=== PATIENT | female | born 1975 | race Caucasian/White ===

== ENCOUNTER 2017-05-02 02:35 | Inpatient (IN) | payer MEDICAID ==
[~2017-05-02] VITALS: Ht 149.9 cm; Wt 71.0 kg
[2017-05-02 02:53] VITALS: BP 148/75; PULSE 61; RESP 18; Ht 149.9 cm; Wt 71.0 kg
[2017-05-02] MEDS ORDERED: LACTATED RINGER'S 1,000 ML IV SCH (03:08)
[2017-05-02] MEDS ORDERED: DEXTROSE 5%-LR 1,000 ML IV SCH (03:08)
[2017-05-02] MEDS ORDERED: OXYTOCIN 30 UNITS/LR 500 ML IV PRN ×2 (03:30→11:00)
[2017-05-02] MEDS ORDERED: CARBOPROST 250 MCG INJ IM PRN ×2 (03:30→11:00)
[2017-05-02] MEDS ORDERED: IBUPROFEN 600 MG TAB PO PRN (03:30)
[2017-05-02] MEDS ORDERED: BUTORPHANOL 2 MG INJ IV PRN (03:30)
[2017-05-02] MEDS ORDERED: MISOPROSTOL 200 MCG TAB PR PRN ×2 (03:30→11:00)
[2017-05-02] MEDS ORDERED: LIDOCAINE 1% (MPF) 30 ML INJ INJ PRN (03:30)
[2017-05-02] MEDS ORDERED: ACETAMINOPHEN/CODEINE #3 TAB PO PRN (03:30)
[2017-05-02] MEDS ORDERED: OXYTOCIN 30 UNITS/LR 500 ML IV SCH ×2 (03:30)
[2017-05-02] MEDS ORDERED: METHYLERGONOVINE 0.2 MG INJ IM PRN ×2 (03:30→11:00)
[2017-05-02 03:56] LABS: ADD SCAN DIFF NO
[2017-05-02 04:21] LABS: BASOPHILS % 0.2 % (0.0-2.0); EOSINOPHILS # 0.1 10^3/ul (0.0-0.5); EOSINOPHILS % 0.7 % (0.0-7.0); HEMOGLOBIN 11.8 g/dl (12.0-16.0); LYMPHOCYTES # 1.6 10^3/ul (0.8-2.9); LYMPHOCYTES % 18.5 % (15.0-51.0); MEAN CORPUSCULAR HGB CONC 34.7 g/dl (32.0-37.0); MEAN CORPUSCULAR VOLUME 92.1 fl (82.0-101.0); MONOCYTE # 0.6 10^3/ul (0.3-0.9); MONOCYTES % 7.5 % (0.0-11.0); NEUTROPHIL # 6.2 10^3/ul (1.6-7.5); NEUTROPHILS % 72.9 % (39.0-77.0); PLATELET COUNT 180 10^3/UL (140-415); RED BLOOD COUNT 3.69 10^6/ul (4.20-5.40); RED CELL DISTRIBUTION WIDTH 13.9 % (11.5-14.5); WHITE BLOOD COUNT 8.5 10^3/ul (4.8-10.8)
--- NOTE | 2017-05-02 04:22 | TRIAGE ---
OB Triage Datetime Report Generated by CPN: 05/02/2017 04:21 Datetime: 05/02/2017 03:18 Assessment Type: Triage Comment: MONITORS OFF, PT TRANSFER TO FB VIA GURNEY. Datetime: 05/02/2017 03:00 Assessment Type: Triage Maternal Assessment Level of Consciousness: Fully Conscious DTR's/Clonus: DTRs 2+; No Clonus Headache: Denies Blurred Vision: No Respiratory Effort: Unlabored; Regular Rhythm; Equal Expansion Breath Sounds, Left: Clear and Equal Breath Sounds, Right: Clear and Equal Nausea/Vomiting: Denies RUQ Epigastric Pain: Denies Lower Extremities Edema: None Upper Extremities Edema: None Facial Edema: None Fall Risk Assessment History of Falling: (0) No Secondary Diagnosis: (0) No Ambulatory Aid: (0) Bedrest/Nurse Assist IV Therapy: (0) No Gait: (0) Normal/Bedrest/Immobile Mental Status: (0) Oriented to Own Ability Fall Score: 0 Fall Risk Score Definition: No Risk: No action required Datetime: 05/02/2017 02:58 Stage of : OB Triage Labor Evaluation Frequency: 3-3.5 Monitor Mode: External Duration (sec)2399: 80-90 Quality: Moderate Pattern: Normal: <= 5 Contractions in 10 Minutes Resting Tone [place]: Relaxed Heart Rate FHR Baseline Rate: 130 Monitor Mode: External US Variability: Moderate 6-25 bpm Accelerations: 15X15 Decelerations: None Category: Category I Pain Assessment Pain Scale: 6 Pain Presence: Intermittent Pain Type: Contraction Pain Location: Abdomen Pain Goal: 3 Datetime: 05/02/2017 02:55 Time of Arrival: 05/02/2017 02:32 EGA: 38.1 Arrived By: Wheelchair Arrived From: Home Chief Complaint: PT C/O ABDOMEN PAIN Movement: Present Contractions: Regular Time Contractions Began: 05/02/2017 00:30 Rupture of Membranes: Denies Vaginal Discharge: Denies Recent Sexual Intercouse: Denies Patient Complaints: Contractions Time Provider Notified: 05/02/2017 03:05 Provider Notified: DR YANG Initial Plan: SVE, TOCO AND EFM APPLIED. Datetime: 05/02/2017 02:45 Stage of : OB Triage Vaginal Exam Dilatation (cms): 4.0 Effacement (%): 80 Station: -2 Exam By: CEZAR ALEX Membrane Status: Intact
[2017-05-02 04:29] LABS: ALANINE AMINOTRANSFERASE 51 IU/L (13-69); ALKALINE PHOSPHATASE 182 IU/L (42-121); ANION GAP 10 (8-16); ASPARTATE AMINO TRANSFERASE 31 IU/L (15-46); BILIRUBIN,INDIRECT 0.2 mg/dl (0-1.1); BILIRUBIN,TOTAL 0.2 mg/dl (0.2-1.3); BLOOD UREA NITROGEN 14 mg/dl (7-20); CARBON DIOXIDE 23 mmol/L (21-31); CHLORIDE 110 mmol/L (97-110); CREATININE 0.62 mg/dl (0.44-1.00); GLUCOSE 102 mg/dl (70-220); POTASSIUM 3.6 mmol/L (3.5-5.1); SODIUM 139 mmol/L (135-144); TOTAL PROTEIN 6.5 g/dl (6.1-8.1)
[2017-05-02] MEDS ORDERED: LACTATED RINGER'S 1,000 ML IV PRN (05:00)
[2017-05-02 05:49] LABS: INR 0.93; PROTIME 12.5 Sec (12.2-14.2)
--- NOTE | 2017-05-02 09:31 | HP ---
Date/Time of Note Date/Time of Note DATE: 05/02/17 TIME: 07:53 OB - History Hx of Present Free Text/Dictation 41y.o A2 at 38w with c/o uterine contractions. u.c 7-5 min apart cx 4cm 80% -2 intact membrane initial b.p 148/75 PIH lab done also known to be A1DM admitted for expectant management Chief Complaint: uterine contrations Estimated Due Date: May 15, 2017 : 5 Para: 2 Spontaneous : 2 Therapeutic : 0 Care: Good Care Ultrasounds: Normal mid trimester US Obstetrical Complications: Gestational Diabetes Medical Complications: None Past Family/Social History * Past Medical, Surgical, Family and Obstetric Histories reviewed from chart. Blood Type: O+ Rubella: immune RPR/VDRL: Negative GBS Status: Negative HBsAG: Negative OB Admission Exam Vital Signs Vital Signs Vital Signs Date Time Temp Pulse Resp B/P Pulse Ox O2 Delivery O2 Flow Rate FiO2 05/02/17 02:53 98.4 61 18 148/75 Physical Exam HEENT: WNL Heart: Rhythm Normal Lungs: Clear, Equal Abdomen: WNL Extremities: Normal Reflexes: Normal Cervical Dilatation: 4cm Effacement: 75% Station: -2 Membranes: Intact Amniotic Fluid: Unevaluable Heart Rate: 140's Accelerations: Accelerations Present Decelerations: No Decelerations Varibility: Moderate Contractions on Admission: 6-10 Minutes Apart Intensity: Moderate Last 72 hourBlood Glucose Bedside Glucose - 72 Hours Test 05/02/17 05:18 Bedside Glucose 130mg/dL (70-220) Last 72 hours Lab Results CBC & BMP 05/02/17 03:25 Liver Function Test 05/02/17 03:25 Alanine Aminotransferase (ALT/SGPT) 51 Albumin 4.0 Alkaline Phosphatase 182 H Aspartate Amino Transf (AST/SGOT) 31 Direct Bilirubin 0.00 Total Protein 6.5 OB Assessment/Plan Reason for admission: active labor Other Assessment: IUP 38w1d Plan: Expectant Management DESEAN YANG MD May 02, 2017 08:07
--- NOTE | 2017-05-02 09:37 | LDN ---
Date/Time of Note Date/Time of Note DATE: 05/02/17 TIME: 09:34 Delivery Summary normal vaginal delivery Weeks of Gestation 38w1d Placenta Delivered: Spontaneously Meconium: none Episiotomy: No Perineal laceration: 0 Anesthesia type: None Estimated blood loss: 300 Sponge & Needle done & correct: Yes All needle counts correct: Yes Any foreign bodies felt in the: No Problems: Delivery Information Sex Sex: male Apgars 1 Minute: 9 5 Minute: 9 Suctioning Nose & mouth suctioned at ju: Yes Umbilical Cord Umbilical cord with: 3 Vessels Cord presentations: no nuchal cord Cord Blood was obtained: Yes Mother & Baby Disposition Disposition Mom & Baby to Maternity; Good: Yes Mom transferred to: Other () Baby to NICU: No DESEAN YANG MD May 02, 2017 09:37
[2017-05-02 10:40] VITALS: BP 152/77; PULSE 56; RESP 18
[2017-05-02] MEDS ORDERED: BENZOCAINE 20% 56 ML SPRAY TOP PRN (11:00)
[2017-05-02] MEDS ORDERED: OXYCODONE/ASPIRIN (4.88/325) TAB PO PRN ×2 (11:00)
[2017-05-02] MEDS ORDERED: ZOLPIDEM 5 MG TAB PO PRN (11:00)
[2017-05-02] MEDS ORDERED: WITCH HAZEL/GLYCERIN PAD PR PRN (11:00)
[2017-05-02] MEDS ORDERED: LANOLIN 7 GM TUBE TOP PRN (11:00)
[2017-05-02 11:10] VITALS: BP 143/71; PULSE 60; RESP 18
[2017-05-02] MEDS: IBUPROFEN 600 MG TAB PO SCH ×3 (12:00→23:29)
[2017-05-02 16:00] VITALS: BP 129/66; PULSE 62; RESP 18
[2017-05-02 20:00] VITALS: BP 121/66; PULSE 62; RESP 18
[2017-05-02] MEDS: SENNA/DOCUSATE NA (8.6MG/50MG) TAB PO SCH (21:49)
[2017-05-03 04:00] VITALS: BP 135/77; PULSE 54; RESP 18
[2017-05-03] MEDS: IBUPROFEN 600 MG TAB PO SCH ×3 (05:45→18:00)
[2017-05-03 08:00] VITALS: BP 127/65; PULSE 65; RESP 18
[2017-05-03 08:15] LABS: ADD SCAN DIFF NO
[2017-05-03 08:29] LABS: BASOPHILS % 0.3 % (0.0-2.0); EOSINOPHILS # 0.1 10^3/ul (0.0-0.5); EOSINOPHILS % 0.9 % (0.0-7.0); HEMATOCRIT 29.5 % (37.0-47.0); LYMPHOCYTES # 1.4 10^3/ul (0.8-2.9); LYMPHOCYTES % 19.4 % (15.0-51.0); MEAN CORPUSCULAR HEMOGLOBIN 31.4 pg (29.0-33.0); MEAN CORPUSCULAR HGB CONC 33.9 g/dl (32.0-37.0); MEAN CORPUSCULAR VOLUME 92.8 fl (82.0-101.0); MEAN PLATELET VOLUME 12.8 fl (7.4-10.4); MONOCYTE # 0.6 10^3/ul (0.3-0.9); MONOCYTES % 7.7 % (0.0-11.0); NEUTROPHIL # 5.3 10^3/ul (1.6-7.5); NEUTROPHILS % 71.4 % (39.0-77.0); PLATELET COUNT 163 10^3/UL (140-415); RED BLOOD COUNT 3.18 10^6/ul (4.20-5.40); RED CELL DISTRIBUTION WIDTH 14.2 % (11.5-14.5); WHITE BLOOD COUNT 7.4 10^3/ul (4.8-10.8)
[2017-05-03] MEDS: SENNA/DOCUSATE NA (8.6MG/50MG) TAB PO SCH ×2 (09:00→21:48)
--- NOTE | 2017-05-03 14:03 | PN ---
Date/Time of Note Date/Time of Note DATE: 05/03/17 TIME: 14:02 OB Subjective Subjective Subjective Doing well.Nursing the baby well.Lochia,normal OB Objective Objective Objective Afebrile,normal BP Uterus firm,abdomen ,soft HEENT: WNL Heart: Rhythm Normal Lungs: Clear Abdomen: WNL Extremities: Normal Reflexes: Normal EMILY HO MD May 03, 2017 14:03
[2017-05-03 16:00] VITALS: BP 137/56; PULSE 57; RESP 18
[2017-05-03 19:30] VITALS: BP 134/63; PULSE 54; RESP 19
[2017-05-04] MEDS: IBUPROFEN 600 MG TAB PO SCH ×2 (00:21→05:25)
[2017-05-04 03:50] VITALS: BP 132/60; PULSE 51; RESP 18
--- NOTE | 2017-05-04 06:06 | DS ---
Date/Time of Note Date/Time of Note DATE: 05/04/17 TIME: 06:04 Obstetrical Discharge Record Final Diagnosis Final Diagnosis: Term delivered Vaginal Delivery Obstetrical Delivery: Spontaneous Complications Augmentation: No Induction: No Rupture of Membranes: No Condition on Discharge Physical Assessment Voiding: Yes Bowel Movement: Yes Breast: Soft, non-tender Fundus: Firm Episiotomy: none Calf Tenderness: No Patient Condition: Stable DESEAN YANG MD May 04, 2017 06:06
--- NOTE | 2017-05-04 06:07 | PD.PPDC ---
[employer] Discharge Instruction Diagnosis Final Diagnosis: s/p normal vagianal delivery Condition Patient Condition: Stable Diet Diet: Resume Regular Diet Activity/Restrictions Activity: May Shower Restrictions: No Lifting No Sexual Activity Nothing in the Vagina No [place] No Tampons, douche Follow-up Follow-up with Physician: 2, Week/Weeks Return to clinic for [employer]SULTANT Instructions: Fever greater than 101 Chills Worsening abdominal pain Excessive Vaginal Bleeding More than 2 pads per hour Unable to tolerate diet OB Instructions: Breast Tenderness Depression Blurried Vision Headache DESEAN YANG MD May 04, 2017 06:07
[2017-05-04 08:00] VITALS: BP 123/58; PULSE 54; RESP 18
[2017-05-04] MEDS: SENNA/DOCUSATE NA (8.6MG/50MG) TAB PO SCH (08:45)
[2017-05-04] MEDS ORDERED: DIPHTH/TET/ACEL PERTUSS (ADULT) 0.5 ML VIAL IM* ONE (09:00)
== END 2017-05-04 17:28 | disposition home or self-care (01) | DRG 775 ==
LOC: L-D 02:35 → OBT 02:35 → L-D 03:05 → PP1 10:45 → L-D 10:45
PROVIDERS: ADMIT Specialist; ATTEND Specialist
PROC: 10E0XZZ Delivery of Products of Conception, External Approach (ICD-10-PCS; principal; 2017-05-02)
PROC: 4A1HX4Z Monitoring of Products of Conception, Cardiac Electrical Activity, External Approach (ICD-10-PCS; 2017-05-02)
PROC: 3E0234Z Introduction of Serum, Toxoid and Vaccine into Muscle, Percutaneous Approach (ICD-10-PCS; 2017-05-04)
DX: O24.420 Gestational diabetes mellitus in childbirth, diet controlled (principal); Z23 Encounter for immunization; Z3A.38 38 weeks gestation of pregnancy; Z37.0 Single live birth
CPT/HCPCS: 80053; 82962; 84560; 85025; 85610; 85730; 86592; 86900; 86901; 87340; 90715; G0463; J0595; J2210; J2590; J7120; J7121